=== PATIENT | female | born 1950 | race Caucasian/White ===

== ENCOUNTER 2020-07-08 06:00 | Observation (INO) ==
[2020-07-08 07:05] LABS: Basophils # 0.1 K/mcL (0.0-0.2); Basophils % 0.6 %; Eosinophils # 0.2 K/mcL (0.0-0.6); Hematocrit 42.4 % (35.3-44.9); Hemoglobin 13.5 g/dL (11.5-15.4); Immature Granulocytes % 0.3 % (0-4); Lymphocytes # 2.5 K/mcL (0.6-4.6); Lymphocytes % 23.3 %; Mean Corpuscular HGB Conc 31.8 g/dL (31.6-35.5); Mean Corpuscular Hemoglobin 28.9 pg (28.0-33.3); Mean Corpuscular Volume 90.8 fL (83.0-100.0); Mean Platelet Volume 10.5 fL (9.4-12.4); Monocytes # 0.6 K/mcL (0.0-1.3); Monocytes % 5.3 %; Neutrophils # 7.5 K/mcL (1.6-8.9); Platelet Count 285 K/mcL (140-400); Red Blood Count 4.67 M/mcL (3.82-4.97); Red Cell Distribution Width 13.3 % (11.5-14.5); Segmented Neutrophils % 68.5 %; White Blood Count 10.9 K/mcL (4.3-11.1)
[2020-07-08 07:06] LABS: INR 0.9; Prothrombin Time 10.7 Seconds (9.4-12.1)
[2020-07-08 07:08] LABS: Activated Partial Thrombo Time 23.7 Seconds (26.0-36.0)
[2020-07-08 07:15] LABS: Alanine Aminotransferase 9 Units/L (7-52); Albumin 4.4 g/dL (3.5-5.7); Albumin/Globulin Ratio 1.4 (1.1-2.2); Alkaline Phosphatase 100 Units/L (34-104); Aspartate Amino Transferase 8 Units/L (13-39); BUN/Creatinine Ratio 19 (6-26); Bilirubin,Indirect 0.3 mg/dL (0.0-1.0); Bilirubin,Total 0.3 mg/dL (0.3-1.0); Blood Urea Nitrogen 19 mg/dL (8-23); Calcium 9.5 mg/dL (8.6-10.3); Carbon Dioxide 28 mEq/L (23-29); Chloride 104 mEq/L (98-107); Globulin 3.2 g/dL (2.4-3.5); Glucose 115 mg/dL (70-105); Osmolality,Calculated 293 (280-300); Sodium 140 mEq/L (136-145); Total Protein 7.6 g/dL (6.4-8.9); eGFR For African Americans > 60 (> 60); eGFR For Non-African Americans 55 (> 60)
[2020-07-08 07:16] LABS: Troponin I < 0.03 ng/mL (< 0.04)
[2020-07-08] MEDS ORDERED: Isovue-370 500 ML BOTTLE IVP ONE (07:32)
[2020-07-08] MEDS ORDERED: Piperacillin/Tazobactam 3.375 GM in 0.9 % Sodium Chloride Mini Bag 100 ML IVPB ONE (09:34)
[2020-07-08] MEDS ORDERED: Vancomycin 1,500 MG/265 ML IV.SOLN IVPB ONE (09:34)
[2020-07-08] MEDS ORDERED: Naloxone 0.4 MG/ML INJ IVP PRN (10:00)
[2020-07-08] MEDS ORDERED: Albuterol 2.5 MG/3 ML NEBULIZER IH PRN (10:03)
[2020-07-08 11:30] LABS: Bilirubin,Urine Negative (Negative); Blood,Urine Negative (Negative); Clarity,Urine Clear (Clear); Color,Urine Light-Yellow (Yellow); Glucose,Urine (UA) Normal (Normal); Ketones,Urine Negative (Negative); Leukocyte Esterase,Urine Moderate (Negative); Nitrite,Urine Negative (Negative); PH,Urine 6.5 pH Units (5.0-8.0); Protein,Urine Negative (Neg-Trace); RBC,Urine 0-3 per hpf (0-3); Specific Gravity,Urine > 1.030 (1.010-1.025); Squamous Epithelial Cell,Urine Few per hpf (None-Few); Urobilinogen,Urine Normal (Normal)
[2020-07-08] MEDS: Gabapentin 300 MG CAPSULE PO SCH (12:00)
[2020-07-08 12:11] LABS: C-Reactive Protein 14 mg/L (Less than 10)
[2020-07-08] MEDS ORDERED: Perflutren Lipid Microsphere 1.3 ML in 0.9 % Sodium Chloride 8.7 ML IVP PRN (12:16)
[2020-07-08] MEDS ORDERED: Nitroglycerin 0.4 MG TAB.SUBL SL PRN (12:17)
[2020-07-08] MEDS: Aspirin Enteric Coated 81 MG Tablet PO SCH (12:40)
[2020-07-08] MEDS: *HR* Heparin 5,000 UNIT/ML VIAL SQ SCH ×2 (14:27→22:12)
[2020-07-08] MEDS: *HR* Methadone 5 MG TABLET PO PRN ×2 (17:13→23:15)
[2020-07-08] MEDS ORDERED: amLODIPine 5 MG TABLET PO SCH (18:00)
[2020-07-08] MEDS ORDERED: Gabapentin 400 MG CAPSULE PO SCH (21:00)
[2020-07-08] MEDS ORDERED: traZODone 50 MG TABLET PO SCH (21:00)
[2020-07-09] MEDS: *HR* Heparin 5,000 UNIT/ML VIAL SQ SCH (05:24)
[2020-07-09] MEDS: *HR* Methadone 5 MG TABLET PO PRN (05:24)
[2020-07-09 06:31] VITALS: BP 113/66
[2020-07-09 06:47] LABS: BUN/Creatinine Ratio 17 (6-26); Blood Urea Nitrogen 18 mg/dL (8-23); Carbon Dioxide 29 mEq/L (23-29); Chloride 107 mEq/L (98-107); Glucose 95 mg/dL (70-105); Magnesium 2.2 mg/dL (1.6-2.6); Osmolality,Calculated 294 (280-300); Phosphorous 5.2 mg/dL (2.7-4.5); Potassium 4.1 mEq/L (3.5-5.1); Sodium 141 mEq/L (136-145); eGFR For African Americans > 60 (> 60); eGFR For Non-African Americans 50 (> 60)
[2020-07-09 07:34] LABS: Basophils % 0.7 %; Eosinophils # 0.1 K/mcL (0.0-0.6); Eosinophils % 2.4 %; Hematocrit 36.7 % (35.3-44.9); Immature Granulocytes % 0.3 % (0-4); Lymphocytes % 34.1 %; Mean Corpuscular HGB Conc 31.6 g/dL (31.6-35.5); Mean Corpuscular Hemoglobin 29.2 pg (28.0-33.3); Mean Corpuscular Volume 92.4 fL (83.0-100.0); Mean Platelet Volume 10.7 fL (9.4-12.4); Monocytes # 0.5 K/mcL (0.0-1.3); Neutrophils # 3.1 K/mcL (1.6-8.9); Platelet Count 228 K/mcL (140-400); Red Blood Count 3.97 M/mcL (3.82-4.97); Red Cell Distribution Width 13.6 % (11.5-14.5); Segmented Neutrophils % 54.5 %; White Blood Count 5.8 K/mcL (4.3-11.1)
[2020-07-09 07:35] LABS: Hemoglobin 11.6 g/dL (11.5-15.4)
[2020-07-09] MEDS: Aspirin Enteric Coated 81 MG Tablet PO SCH (08:27)
[2020-07-09] MEDS: Gabapentin 300 MG CAPSULE PO SCH (08:27)
[2020-07-09] MEDS ORDERED: Valsartan 160 MG TABLET PO SCH (09:00)
[2020-07-09] MEDS ORDERED: PARoxetine 20 MG TABLET PO SCH (09:00)
== END 2020-07-09 11:08 | disposition home or self-care (01) ==
LOC: CDU 06:00 → EMEROOARM 06:00 → SUATTDRO 09:54 → CDU 11:00 → 3BNU 15:28
PROVIDERS: ADMIT Internal Medicine; ATTEND Internal Medicine